=== PATIENT | male | born 1975 | race Asian ===

== ENCOUNTER 2023-07-01 22:59 | Emergency (ER) | payer OTHER, SELFPAY ==
[2023-07-01 23:05] VITALS: BP 142/94
[2023-07-01 23:21] LABS: % Basophils 0.8 % (0-2); % Eosinophils 1.6 % (0-6); % Immature Granulocytes 0.2 % (0-0.5); % Lymphocytes 45.4 % (20.5-51.1); % Monocytes 6.5 % (1.7-9.3); % Neutrophils 45.5 % (42.2-75.2); Absolute Basophils 0.1 10^3/uL (0-0.2); Absolute Eosinophils 0.2 10^3/uL (0-0.7); Absolute Lymphocytes 6.6 10^3/uL (1.2-3.4); Absolute Monocytes 0.9 10^3/uL (0.1-0.6); Absolute Neutrophils 6.6 10^3/uL (1.4-6.5); Hematocrit 38.2 % (39.0-52.0); Hemoglobin 12.9 g/dL (13.0-18.0); Mean Corp Hgb Conc. 33.8 g/dL (33.0-37.0); Mean Corpuscular Hgb 29.5 pg (27.0-31.0); Mean Corpuscular Volume 87.4 fL (80.0-94.0); Mean Platelet Volume 8.7 fL (7.4-10.4); Nucleated Red Blood Cells % 0 % (-); Platelet Count 409 10^3/uL (130-400); Red Blood Cell Count 4.37 10^6/uL (4.70-6.10); Red Cell Dist. Width 12.4 % (11.5-14.5); White Blood Cell Count 14.4 10^3/uL (4.8-10.8)
[2023-07-01 23:48] LABS: ALT (SGPT) 112 U/L (0-50); AST (SGOT) 59 U/L (17-59); Albumin 4.8 g/dl (3.5-5.0); Alkaline Phosphatase 103 U/L (38-126); Blood Urea Nitrogen 18 mg/dl (9-20); Calcium 10.1 mg/dl (8.4-10.2); Carbon Dioxide 25 mmol/L (22-30); Chloride 104 mmol/L (98-107); Glucose 91 mg/dl (70-99); Lipase 120 U/L (23-300); Potassium 4.6 mmol/L (3.5-5.1); Sodium 136 mmol/L (135-145); Total Bilirubin 0.4 mg/dl (0.2-1.3); Total Protein 8.3 g/dl (6.3-8.2); eGFR > 60.00
[2023-07-01 23:54] LABS: Troponin I < 0.012 ng/ml
[2023-07-02 02:06] VITALS: BMI 39.9
[2023-07-02 02:07] VITALS: BP 113/70
--- NOTE | 2023-07-02 02:15 | ED.GENMED ---
History of Present Illness
General
Chief Complaint: Chest Pain
Source: patient
Exam Limitations: none
Time Seen by Provider: 07/02/23 01:47
Travel History
Have you had any contact with someone who has COVID-19?: No
Do you have any symptoms of coronavirus? Fever > 100 degrees, chills, cough, shortness of breath, sore throat, loss of taste or smell, muscle aches, or headache?: No
History of Present Illness
History of Present Illness:
This is a 47 year old male that comes in with c/ right sided chest pain. States that a few days ago he started with this little right sided chest pain that he could pin point this pain with deep breathing. States that at first he thought he slept
wrong. States that Today he was just folding close and the pain started. States that it hurts with deep breathing. States that he has felt lightheaded. Denies any fever, chills, cough, SOB, abd pain, nausea ,vomiting, diarrhea, headache.
Past History
Past History
ED Past Medical History: GERD and Other (Gout, takes allopurinol 300 mg daily)
ED Past Surgical History: None
Social History
Tobacco: Non-smoker
Alcohol: None
Drug: None
Personal:
Living: with family
Employment: Employed
Family History
Family History: Early CAD
Review of Systems
Review of Systems
All Other Systems: ROS reviewed and negative except as documented in HPI and ROS
Constitutional: Reports no symptoms; Denies fever or chills
EENT: Reports no symptoms
Respiratory: Denies cough or trouble breathing
Cardiac: Reports chest pain (Right sided with deep breathing)
ABD/GI: Reports no symptoms; Denies abdominal pain, nausea, vomiting or diarrhea
: Reports no symptoms; Denies dysuria, frequency or urgency
Musculoskeletal: Reports no symptoms
Skin: Reports no symptoms
Neurological: Reports other (Lightheaded); Denies headache
Psychiatric: Reports no symptoms
Phy Exam
General Physical Exam
General Presentation: no apparent distress
General age: appears stated age
General Skin: warm and dry
General Habitus: normal
General Mental: alert
General Hydration: appears well hydrated
ENT Exam
ENT Exam: TM's normal, pharynx normal and neck supple
Eye Exam
Eye Exam: EOMI
Cardiovascular Exam
Cardiovascular Exam: regular rate/rhythm, no edema, no murmur, normal peripheral pulses and other (Pain is not reproducible with palpation)
Pulmonary Exam
Pulmonary Exam: lungs clear, no respiratory distress, no rales, chest non tender, no crackles, no rhonchi, no wheezing and no cough
Gastrointestinal Exam
Gastrointestinal Exam: normal bowel sounds, non tender, soft, no organomegaly, no pulsatile mass and non distended
Musculoskeletal Exam
Musculoskeletal Exam: full ROM and no edema
Skin Exam
Skin Exam: normal color, warm/dry and no rash
Psychiatric Exam
Psychiatric Exam: normal mood/affect
Scores
Heart Score for Chest Pain Patients
STEMI patient?: Not applicable
Course
Orders/Labs/Results
Orders:
Orders
07/01/23 23:00
Electrocardiogram (*1) Urgent
Reason for Study: Chest Pain
EKG- Treatment ONCE
07/01/23 23:13
CMP [Comprehensive Metabolic Panel] Urgent
Complete Blood Count/With Diff Urgent
Lipase Urgent
Troponin I Urgent
07/02/23 02:00
CT Chest Pe Study Urgent
Comment:
Reason For Exam: Right sided chest pain with deep breathing
07/02/23 02:01
0.9% Sodium Chloride 500 ml [Nss] 500 ml IV BOLUS
Abnormal Lab Results
07/01/23
23:13
WBC 14.4 H 10^3/uL
(4.8-10.8)
RBC 4.37 L 10^6/uL
(4.70-6.10)
Hgb 12.9 L g/dL
(13.0-18.0)
Hct 38.2 L %
(39.0-52.0)
Plt Count 409 H 10^3/uL
(130-400)
Absolute Neuts (auto) 6.6 H 10^3/uL
(1.4-6.5)
Absolute Lymphs (auto) 6.6 H 10^3/uL
(1.2-3.4)
Absolute Monos (auto) 0.9 H 10^3/uL
(0.1-0.6)
ALT 112 H U/L
(0-50)
Total Protein 8.3 H g/dl
(6.3-8.2)
07/01/23 23:13
07/01/23 23:13
Leukocytosis, H/H slightly low. Plt slightly elevated. ALt elevation. troponin <0.012, Lipase normal at 120
Vital Signs
Initial and Last Documented VS:
Initial Vital Signs
Temp Pulse Resp BP Pulse Ox
98.8 F 76 22 142/94 98
07/01/23 23:05 07/01/23 23:05 07/01/23 23:05 07/01/23 23:05 07/01/23 23:05
Last Documented Vital Signs
Temp Pulse Resp BP Pulse Ox
98.8 F 60 16 113/70 98
07/01/23 23:05 07/02/23 02:07 07/02/23 02:07 07/02/23 02:07 07/02/23 02:07
MDM/Problems Addressed
Differential Diagnosis Includes:
PE, Costochondritis
MDM/Problems Addressed:
This is a 47 year old male that comes in with c/o right sided chest pain that started a few days ago. States that he can pin point the pain when he takes a deep breath.
Will check labs and get CT chest.
Back into see patient. Explained that the CT of the chest is negative for any Pneumonia or PE. This may be Costochondritis. Will place patient on Naproxen and have him follow up with the Family doctor. Patient to return with any concerns.
Chronic conditions affecting care:
NA
Acute Exacerbation and/or Progression of Chronic Illness:
NA
*Radiology
Radiology exam reviewed: radiology read reviewed (CT chest- night hawk- Good bolus, mild motion. No evidence of pulmonary embolism. No evidence of aortic dissection or aneurysm. no focal airspace consolidation. NO pleural effusion or pneumothorax.
Fatty liver, )
*Pulse Oximetry
Patient hypoxic: no
*EKG
Interpreted by ED Provider?: Yes
Heart Rate: 69
Rate: normal
Rhythm: sinus
[place]: normal axis
Interval: normal interval
QRS Pattern: normal QRS
Ischemia: no ischemia
*Critical Care Note
Total Time (30-74mins, 75-104mins- exclusive of procedures): Not Applicable
ED Attending Note
-
Portions of this chart may have been created with voice recognition software.� Occasional wrong word or��sound alike� substitutions may have occurred due to the inherent limitations of voice recognition software.
Discharge Plan
Departure
Patient Disposition: Home (Routine Discharge)
Date of Disposition: 07/02/23
Time of Disposition: 03:24
Patient with high blood pressure during this ER visit?: No
Condition: Good
Covid-19: Not Applicable
Discharge Problem:
Acute costochondritis
Instructions: Costochondritis (DC)
Prescriptions:
New
naproxen 500 mg tablet
500 mg PO BID Qty: 10 0RF
No Action
cetirizine 10 MG tablet
10 mg PO DAILY
ibuprofen 600 MG tablet
600 mg PO Q6 PRN (Reason: pain) Qty: 20 0RF
methylprednisolone [Medrol (Pritesh)] 4 MG tablets,dose pack
4 tab PO . DIRECT Qty: 1 0RF
omeprazole magnesium [Prilosec OTC] 20 MG tablet,delayed release (DR/EC)
20 mg PO BID Qty: 20 0RF
Rx Instructions:
take while taking motrin and medrol
doxycycline hyclate 100 MG capsule
100 mg PO Q12 Qty: 14 0RF
Paxlovid 300 mg (150 mg x 2)-100 mg tablet
See Rx Instructions .ROUTE .COMPLEX Qty: 30 0RF
Rx Instructions:
orally per package directions
Referrals:
Justice Pena, DO [Family Provider] - Follow up in 2-3 days
Activity Restrictions/Additional Instructions:
As discussed, your blood work shows that your White blood cell count is slightly elevated. This may happen due to the stress caused by the pain. Your CT of the chest is normal. This is most likely a Costochondritis. You have had a prescription for
Naproxen sent to your Pharmacy. Please take as directed with food. Follow up with the family doctor. IF YOU HAVE INCREASED OR CHANGING PAIN, OR YOU HAVE ANY OTHER CONCERNS PLEASE RETURN TO THE EMERGENCY ROOM.
Interventions
Interventions:
*Risk Screen - Suicide Last Done: 07/01/23 23:05
*General Assessment Last Done: 07/02/23 02:06
*Neglect/Abuse Screening Last Done: 07/01/23 23:05
ED- Fall Risk Assessment Last Done: 07/02/23 02:24
*ED COVID-19 Vaccine History Last Done: 07/02/23 02:06
ED- Cardiac Assessment Last Done: 07/02/23 02:24
Discharge Date and Time
Print Language: MOHAWK
[2023-07-02] MEDS: NSS 500 IV (02:30)
[2023-07-02] MEDS: TORADOL 30 MG IV (03:26)
== END 2023-07-02 04:07 | disposition home or self-care (01) ==
LOC: EMR 22:59
PROVIDERS: EMERGENCY PHYSICIAN Emergency Medicine; FAMILY PHYSICIAN Family Medicine
DX: M94.0 Chondrocostal junction syndrome [Tietze] (principal); K21.9 Gastro-esophageal reflux disease without esophagitis; D72.829 Elevated white blood cell count, unspecified; Z82.49 Family history of ischemic heart disease and other diseases of the circulatory system
CPT/HCPCS: 99284; 96374; 96361; 71275; 80053; 83690; 84484; 85025; 93005; Q9967

== ENCOUNTER 2024-01-12 19:07 | Emergency (ER) | payer OTHER, SELFPAY ==
[2024-01-12 19:12] VITALS: BP 127/82
[2024-01-12 19:49] LABS: Hematocrit 41.9 % (39.0-52.0); Hemoglobin 14.3 g/dL (13.0-18.0); Mean Corp Hgb Conc. 34.1 g/dL (33.0-37.0); Mean Corpuscular Hgb 29.1 pg (27.0-31.0); Mean Corpuscular Volume 85.3 fL (80.0-94.0); Mean Platelet Volume 8.9 fL (7.4-10.4); Platelet Count 450 10^3/uL (130-400); Red Blood Cell Count 4.91 10^6/uL (4.70-6.10); Red Cell Dist. Width 12.3 % (11.5-14.5); White Blood Cell Count 12.6 10^3/uL (4.8-10.8)
[2024-01-12 19:56] LABS: ALT (SGPT) 38 U/L (0-50); AST (SGOT) 32 U/L (17-59); Albumin 4.9 g/dl (3.5-5.0); Alkaline Phosphatase 94 U/L (38-126); Blood Urea Nitrogen 23 mg/dl (9-20); Calcium 9.6 mg/dl (8.4-10.2); Carbon Dioxide 25 mmol/L (22-30); Chloride 103 mmol/L (98-107); Glucose 101 mg/dl (70-99); Potassium 4.7 mmol/L (3.5-5.1); Sodium 142 mmol/L (135-145); Total Bilirubin 0.3 mg/dl (0.2-1.3); Total Protein 8.4 g/dl (6.3-8.2); eGFR > 60.00
[2024-01-12 19:59] LABS: Segmented Neutrophils 47 % (42-75)
[2024-01-12 20:00] LABS: Atypical Lymphocytes 6 %; Band Neutrophils 1 % (0-3); Eosinophils 3 % (0-6); Lymphocytes 38 % (20-51); Monocytes 5 % (2-9); Normal RBC Morphology Yes; Platelets Checked Yes; Total Cells Counted 100
[2024-01-12 20:03] LABS: NT-proBNP < 20.0 pg/ml; Troponin I < 0.012 ng/ml
--- NOTE | 2024-01-12 22:40 | ED.GENMED ---
History of Present Illness
<ELSA London - Last Filed: 01/13/24 00:04>
General
Chief Complaint: Heart Rate Problem
Source: patient and spouse
Time Seen by Provider: 01/12/24 19:33
History of Present Illness
History of Present Illness:
A 48 yo male with a PMH of GERD presents to the ED for heart palpiation. He admits that 4 episode have occurred over the last week. He states he feel a sudden onset of anxiousness, light headedness, and slightly dizzy, and 'like I'm going to '.
He previously visited the [facility] in [place] on 01/08/2024 for the same complaint to which he they think he had a presumed SVT arrythmyia. He also admits to episode in 02/2022. A similar episode occurred today at noon and around 4
pm . He is to be evaluated for pSVT with his television news reporter on 01/16/2024 Dr. Brayden Herzog. He tells me that he's now scared of future attacks because of the way it makes him feel. His primary care doctor Laura Pratt told him to come into the ER
tonight in order for him to be prescribed a beta-acacia.
He has a family history of CAD on the entire male side of the family, but no history of arrhythmias.
Past History
<ELSA London - Last Filed: 01/13/24 00:04>
Past History
ED Past Medical History: GERD and Other (Gout, takes allopurinol 300 mg daily)
ED Past Surgical History: None
Social History
Tobacco: Non-smoker
Alcohol: None
Drug: None
Personal:
Living: with family
Employment: Employed
Family History
Family History: Early CAD
Phy Exam
<ELSA London - Last Filed: 01/13/24 00:04>
General Physical Exam
General Presentation: well appearing and no apparent distress
Eye Exam
Eye Exam: PERRL
Cardiovascular Exam
Cardiovascular Exam: regular rate/rhythm, no edema, no gallop, no murmur and normal peripheral pulses
Pulmonary Exam
Pulmonary Exam: lungs clear, no respiratory distress, no rales, no crackles, no rhonchi, no wheezing and no cough
Gastrointestinal Exam
Gastrointestinal Exam: normal bowel sounds, non tender, soft and non distended
Neurological Exam
Neurological Exam: alert and oriented x3
Musculoskeletal Exam
Musculoskeletal Exam: full ROM
Skin Exam
Skin Exam: normal color, warm/dry and no rash
Psychiatric Exam
Psychiatric Exam: normal mood/affect
Course
<Jakub Pereyra, [facility] - Last Filed: 01/13/24 00:04>
Orders/Labs/Results
Orders:
Orders
01/12/24 19:11
Electrocardiogram (*1) Urgent
Reason for Study: Other
Other Reason for Exam: Respiratory Distress
Cardiac Monitoring- Treatment ONCE
EKG- Treatment ONCE
IV Insert/Care/Rem.- Treatment PRN
CR Chest - 2 Views Urgent
Comment:
Reason For Exam: respiratory distress
O2 Therapy [RESP] Urgent
Titrate/Wean O2 to maintain O2 sat greater than (%): 93
Special Instructions: TO MAINTAIN CONTINUOUS O2 SATS >/= 93%
Pulse Ox/cont/shift [RESP] Urgent
Quantity: 1
Special Instructions: continuous pulse ox
01/12/24 19:25
Complete Blood Count/With Diff Urgent
Manual Differential Urgent
01/12/24 19:26
Comprehensive Metabolic Panel Urgent
NT-proBNP Urgent
Troponin I Urgent
Abnormal Lab Results
01/12/24 01/12/24
19:25 19:26
WBC 12.6 H 10^3/uL
(4.8-10.8)
Plt Count 450 H 10^3/uL
(130-400)
BUN 23 H mg/dl
(9-20)
Glucose 101 H mg/dl
(70-99)
Total Protein 8.4 H g/dl
(6.3-8.2)
01/12/24 19:25
01/12/24 19:26
Vital Signs
Initial and Last Documented VS:
Initial Vital Signs
Temp Pulse Resp BP Pulse Ox
98.4 F 84 20 127/82 97
01/12/24 19:12 01/12/24 19:12 01/12/24 19:12 01/12/24 19:12 01/12/24 19:12
Last Documented Vital Signs
Temp Pulse Resp BP Pulse Ox
98.4 F 71 24 136/86 98
01/12/24 19:12 01/12/24 23:00 01/12/24 23:00 01/12/24 23:00 01/12/24 23:02
<Parrish Benson, DO - Last Filed: 01/13/24 00:02>
Orders/Labs/Results
Orders:
Orders
01/12/24 19:11
Electrocardiogram (*1) Urgent
Reason for Study: Other
Other Reason for Exam: Respiratory Distress
Cardiac Monitoring- Treatment ONCE
EKG- Treatment ONCE
IV Insert/Care/Rem.- Treatment PRN
CR Chest - 2 Views Urgent
Comment:
Reason For Exam: respiratory distress
O2 Therapy [RESP] Urgent
Titrate/Wean O2 to maintain O2 sat greater than (%): 93
Special Instructions: TO MAINTAIN CONTINUOUS O2 SATS >/= 93%
Pulse Ox/cont/shift [RESP] Urgent
Quantity: 1
Special Instructions: continuous pulse ox
01/12/24 19:25
Complete Blood Count/With Diff Urgent
Manual Differential Urgent
01/12/24 19:26
Comprehensive Metabolic Panel Urgent
NT-proBNP Urgent
Troponin I Urgent
Abnormal Lab Results
01/12/24 01/12/24
19:25 19:26
WBC 12.6 H 10^3/uL
(4.8-10.8)
Plt Count 450 H 10^3/uL
(130-400)
BUN 23 H mg/dl
(9-20)
Glucose 101 H mg/dl
(70-99)
Total Protein 8.4 H g/dl
(6.3-8.2)
01/12/24 19:25
01/12/24 19:26
Vital Signs
Initial and Last Documented VS:
Initial Vital Signs
Temp Pulse Resp BP Pulse Ox
98.4 F 84 20 127/82 97
01/12/24 19:12 01/12/24 19:12 01/12/24 19:12 01/12/24 19:12 01/12/24 19:12
Last Documented Vital Signs
Temp Pulse Resp BP Pulse Ox
98.4 F 71 24 136/86 98
01/12/24 19:12 01/12/24 23:00 01/12/24 23:00 01/12/24 23:00 01/12/24 23:02
<ELSA London - Last Filed: 01/13/24 00:04>
*Critical Care Note
Total Time (30-74mins, 75-104mins- exclusive of procedures): Not Applicable
ED Attending Note
<ELSA London - Last Filed: 01/13/24 00:04>
-
Portions of this chart may have been created with voice recognition software.� Occasional wrong word or��sound alike� substitutions may have occurred due to the inherent limitations of voice recognition software.
<Parrish Benson, DO - Last Filed: 01/13/24 00:02>
ED Attending Note
Patient seen and examined by attending physician: Yes
I performed the substantive portion of visit, reviewed & personally made and approve the management plan that is documented in note by myself or RAFA.: Yes
ED Attending Note:
Pleasant 48-year-old male presents to the emergency department after intermittent palpitations. Patient was diagnosed with 'presumed intermittent SVT '. Patient follows with Dr. Marques Herzog, cardiology and has an appointment this Sunday. Patient
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 Patient was in contact with his primary care provider who advised him to come to the ER to be started on a beta-acacia. Patient was seen in conjunction with the PA student. I have reviewed and agree with
the history and treatment plan presented. On my independent physical exam, patient is awake, alert, and oriented x3, minimal acute distress at this time. Heart is regular rate and rhythm. Lungs are clear to auscultation bilaterally without
wheezes rales or rhonchi present. Abdomen is obese and soft. Skin is warm and dry. Patient moves all 4 extremities. Patient mentate appropriately.
Patient had a D-dimer on Sunday which was negative.
Spoke with Dr. Laura Rucker. PCP to discuss case. She requested that we start a Holter monitor. Patient due to follow-up with cardiology this week.
Patient to be put in the chest pain follow-up hotline to follow-up with cardiology, request Holter monitor. Will start a beta-acacia.
Discharge Plan
Departure
Patient Disposition: Home (Routine Discharge)
Date of Disposition: 01/13/24
Time of Disposition: 00:00
Patient with high blood pressure during this ER visit?: Yes
Condition: Good
Discharge Problem:
Palpitations
Instructions: Palpitations (DC), BLOOD PRESSURE
Prescriptions:
New
metoprolol succinate [Toprol XL] 25 mg tablet extended release 24 hr
25 mg PO DAILY Qty: 14 0RF
No Action
cetirizine 10 MG tablet
10 mg PO DAILY
ibuprofen 600 MG tablet
600 mg PO Q6 PRN (Reason: pain) Qty: 20 0RF
methylprednisolone [Medrol (Pritesh)] 4 MG tablets,dose pack
4 tab PO . DIRECT Qty: 1 0RF
omeprazole magnesium [Prilosec OTC] 20 MG tablet,delayed release (DR/EC)
20 mg PO BID Qty: 20 0RF
Rx Instructions:
take while taking motrin and medrol
doxycycline hyclate 100 MG capsule
100 mg PO Q12 Qty: 14 0RF
Paxlovid 300 mg (150 mg x 2)-100 mg tablet
See Rx Instructions .ROUTE .COMPLEX Qty: 30 0RF
Rx Instructions:
orally per package directions
naproxen 500 mg tablet
500 mg PO BID Qty: 10 0RF
Referrals:
[facility] [Provider Group] - Next open appointment
Laura Rucker MD [Family Provider] -
Activity Restrictions/Additional Instructions:
As discussed cardiology will be giving you a call this week. Please discuss Holter monitor with them at your appointment scheduled for this Sunday.
It was a pleasure meeting you and taking part in your care. We hope for your continued healing and wellness.
Please read discharge instructions in their entirety. However, they are for general education and may not describe your exact diagnosis at discharge. Information on your ER visit and medical conditions were discussed with you along with appropriate
follow up information...
If indicated, please take your medications as instructed and indicated on discharge paperwork.
Please schedule a follow up appointment as directed. Call to schedule an appointment
Please return to the emergency department with ANY change in, persisting, or worsening of symptoms. If any of your symptoms do not improve, or persist, or become more severe within 6-12 hours, please return to the emergency department for further
care.
Please return to the emergency department if you develop a headache, neck pain/stiffness, fever greater than 100.4F, chest pain, shortness of breath, persistent nausea, vomiting, slurred speech, difficulty walking, numbness/tingling, weakness, signs
of infection or any other symptoms that are worrisome to you.
If you have any questions or concerns please do not hesitate to call the Hospital at or E-mail me directly at [email or web address]
Interventions
Interventions:
*Risk Screen - Suicide Last Done: 01/12/24 19:12
*General Assessment Last Done: 01/12/24 19:12
*Neglect/Abuse Screening Last Done: 01/12/24 19:12
ED- Fall Risk Assessment Last Done: 01/12/24 19:12
*ED COVID-19 Vaccine History Last Done: 01/12/24 19:12
ED- Cardiac Assessment Last Done: 01/12/24 23:02
ED- Pulmonary Assessment Last Done: 01/12/24 23:02
Discharge Date and Time
Print Language: UPPER SORBIAN
[2024-01-12 23:00] VITALS: BP 136/86; BMI 39.9
[2024-01-13] VITALS: BP 127/85
== END 2024-01-13 00:29 | disposition home or self-care (01) ==
LOC: EMR 19:07
PROVIDERS: EMERGENCY PHYSICIAN Student in an Organized Health Care Education/Training Program; FAMILY PHYSICIAN Family Medicine
DX: R00.2 Palpitations (principal); R42 Dizziness and giddiness; K21.9 Gastro-esophageal reflux disease without esophagitis; M10.9 Gout, unspecified; Z79.899 Other long term (current) drug therapy; Z88.1 Allergy status to other antibiotic agents
CPT/HCPCS: 99285; 94760; 71046; 80053; 83880; 84484; 85025; 93005

== ENCOUNTER 2024-01-17 14:49 | Emergency (ER) | payer OTHER, SELFPAY ==
[2024-01-17 14:55] VITALS: BP 130/79
[2024-01-17 15:10] LABS: % Basophils 0.7 % (0-2); % Immature Granulocytes 0.2 % (0-0.5); % Lymphocytes 43.9 % (20.5-51.1); % Monocytes 5.8 % (1.7-9.3); % Neutrophils 48.4 % (42.2-75.2); Absolute Basophils 0.1 10^3/uL (0-0.2); Absolute Eosinophils 0.1 10^3/uL (0-0.7); Absolute Lymphocytes 4.8 10^3/uL (1.2-3.4); Absolute Monocytes 0.6 10^3/uL (0.1-0.6); Absolute Neutrophils 5.3 10^3/uL (1.4-6.5); Hematocrit 38.1 % (39.0-52.0); Hemoglobin 13.3 g/dL (13.0-18.0); Mean Corp Hgb Conc. 34.9 g/dL (33.0-37.0); Mean Corpuscular Hgb 30.3 pg (27.0-31.0); Mean Corpuscular Volume 86.8 fL (80.0-94.0); Mean Platelet Volume 9.1 fL (7.4-10.4); Nucleated Red Blood Cells % 0 % (-); Platelet Count 393 10^3/uL (130-400); Red Blood Cell Count 4.39 10^6/uL (4.70-6.10)
[2024-01-17 15:25] LABS: ALT (SGPT) 32 U/L (0-50); AST (SGOT) 26 U/L (17-59); Albumin 4.7 g/dl (3.5-5.0); Alkaline Phosphatase 88 U/L (38-126); Blood Urea Nitrogen 16 mg/dl (9-20); Calcium 10.3 mg/dl (8.4-10.2); Carbon Dioxide 25 mmol/L (22-30); Chloride 99 mmol/L (98-107); Glucose 145 mg/dl (70-99); Potassium 4.4 mmol/L (3.5-5.1); Sodium 138 mmol/L (135-145); Total Bilirubin 0.3 mg/dl (0.2-1.3); Total Protein 7.9 g/dl (6.3-8.2); eGFR > 60.00
[2024-01-17 15:34] LABS: Troponin I < 0.012 ng/ml
--- NOTE | 2024-01-17 17:15 | ED.GENMED ---
History of Present Illness
General
Chief Complaint: Chest Pain
Source: patient
Time Seen by Provider: 01/17/24 16:39
History of Present Illness
History of Present Illness:
48-year-old male presents to the emergency room complaining of palpitations and some chest pain. Patient has been experiencing rapid heart rate and palpitations frequently over the past few weeks. He was seen by cardiology yesterday. He began
taking metoprolol 25 mg. 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 He also had a visit to the emergency room in [place] where he was found
to have SVT. Chest pain today began several hours ago and is located in the right upper chest. No associated diaphoresis or shortness of breath. Symptoms seem to start after eating lunch.
Past History
Past History
ED Past Medical History: GERD and Other (Gout, takes allopurinol 300 mg daily)
ED Past Surgical History: None
Social History
Tobacco: Non-smoker
Alcohol: None
Drug: None
Personal:
Living: with family
Employment: Employed
Family History
Family History: Early CAD
Phy Exam
Physical Exam
Physical Exam:
General: Awake, Alert, Oriented X3. No acute distress.
Vitals: unremarkable
Head: Atraumatic
Eyes: Pupils equal, EOMI
Throat: Airway intact, no exudates
Neck: Trachea midline
Lungs: Clear and equal b/l
Heart: Regular rate, no murmurs
Abd: Soft, Nontender, No pulsatile mass
Neuro: Cranial nerves intact, muscle strength equal bilaterally, cerebellar exam normal
Skin: Warm, dry, no rash
Extremities: pulses equal b/l, no edema
Scores
Heart Score for Chest Pain Patients
STEMI patient?: No
History: Slightly or Non-Suspicious
ECG: Normal
Age: >45 - <65 years
Risk Factors: 1 or 2 Risk Factors
Troponin: </= Normal Limit
Heart Score for Chest Pain Patients: 2
Heart Score Risk: 2.5% MACE over next 6 weeks
Course
Orders/Labs/Results
Orders:
Orders
01/17/24 14:50
Electrocardiogram (*1) Urgent
Reason for Study: Chest Pain
EKG- Treatment ONCE
01/17/24 15:01
CMP [Comprehensive Metabolic Panel] Urgent
Complete Blood Count/With Diff Urgent
Troponin I Urgent
Abnormal Lab Results
01/17/24
15:01
WBC 11.0 H 10^3/uL
(4.8-10.8)
RBC 4.39 L 10^6/uL
(4.70-6.10)
Hct 38.1 L %
(39.0-52.0)
Absolute Lymphs (auto) 4.8 H 10^3/uL
(1.2-3.4)
Glucose 145 H mg/dl
(70-99)
Calcium 10.3 H mg/dl
(8.4-10.2)
01/17/24 15:01
01/17/24 15:01
Vital Signs
Initial and Last Documented VS:
Initial Vital Signs
Temp Pulse Resp BP Pulse Ox
98.2 F 74 16 130/79 98
01/17/24 14:55 01/17/24 14:55 01/17/24 14:55 01/17/24 14:55 01/17/24 14:55
Last Documented Vital Signs
Temp Pulse Resp BP Pulse Ox
98.2 F 72 18 128/72 99
01/17/24 14:55 01/17/24 17:33 01/17/24 17:33 01/17/24 17:33 01/17/24 17:33
MDM/Problems Addressed
Differential Diagnosis Includes:
PVCs, PACs, SVT, anxiety
MDM/Problems Addressed:
Patient has a normal EKG. No significant dysrhythmias noted on observation on the monitor here. Labs unremarkable. Patient is under significant stress. I suspect this is greatly contributing to his symptomatology. He stable for discharge from
the emergency room and outpatient follow-up with cardiology.
*Pulse Oximetry
Patient hypoxic: no
*EKG
Interpreted by ED Provider?: Yes
Heart Rate: 73
Rate: normal
Rhythm: sinus
[place]: normal axis
Interval: normal interval
QRS Pattern: normal QRS
Ischemia: no ischemia
*Manager Diversity Interpretation
Rate: normal
Interpretation: normal
Rhythm: sinus
*Critical Care Note
Total Time (30-74mins, 75-104mins- exclusive of procedures): Not Applicable
ED Attending Note
-
Portions of this chart may have been created with voice recognition software.� Occasional wrong word or��sound alike� substitutions may have occurred due to the inherent limitations of voice recognition software.
Discharge Plan
Departure
Patient Disposition: Home (Routine Discharge)
Date of Disposition: 01/17/24
Time of Disposition: 17:16
Patient with high blood pressure during this ER visit?: No
Condition: Good
Discharge Problem:
Chest pain, Palpitations
Instructions: Palpitations, Chest Pain [facility] Follow Up
Prescriptions:
No Action
cetirizine 10 MG tablet
10 mg PO DAILY
ibuprofen 600 MG tablet
600 mg PO Q6 PRN (Reason: pain) Qty: 20 0RF
methylprednisolone [Medrol (Pritesh)] 4 MG tablets,dose pack
4 tab PO . DIRECT Qty: 1 0RF
omeprazole magnesium [Prilosec OTC] 20 MG tablet,delayed release (DR/EC)
20 mg PO BID Qty: 20 0RF
Rx Instructions:
take while taking motrin and medrol
doxycycline hyclate 100 MG capsule
100 mg PO Q12 Qty: 14 0RF
Paxlovid 300 mg (150 mg x 2)-100 mg tablet
See Rx Instructions .ROUTE .COMPLEX Qty: 30 0RF
Rx Instructions:
orally per package directions
naproxen 500 mg tablet
500 mg PO BID Qty: 10 0RF
metoprolol succinate [Toprol XL] 25 mg tablet extended release 24 hr
25 mg PO DAILY Qty: 14 0RF
Interventions
Interventions:
*Risk Screen - Suicide Last Done: 01/17/24 14:55
*General Assessment Last Done: 01/17/24 17:31
*Neglect/Abuse Screening Last Done: 01/17/24 14:55
ED- Fall Risk Assessment Last Done: 01/17/24 17:31
*ED COVID-19 Vaccine History Last Done: 01/17/24 17:31
*Nursing Disposition Last Done: 01/17/24 17:31
ED- Cardiac Assessment Last Done: 01/17/24 17:00
Discharge Date and Time
Print Language: MACEDONIAN
[2024-01-17 17:33] VITALS: BP 128/72
== END 2024-01-17 17:31 | disposition home or self-care (01) ==
LOC: EMR 14:49
PROVIDERS: Emergency Medicine; EMERGENCY PHYSICIAN Emergency Medicine; FAMILY PHYSICIAN Family Medicine
DX: R07.89 Other chest pain (principal); R00.2 Palpitations; K21.9 Gastro-esophageal reflux disease without esophagitis; I47.10 Supraventricular tachycardia, unspecified; Z82.49 Family history of ischemic heart disease and other diseases of the circulatory system
CPT/HCPCS: 99283; 80053; 84484; 85025; 93005

== ENCOUNTER 2024-02-26 09:34 | Emergency (ER) | payer OTHER, SELFPAY ==
[2024-02-26 09:39] VITALS: BP 130/81
--- NOTE | 2024-02-26 09:58 | ED.GENMED ---
History of Present Illness
<Mariia Kumar MD, Resident - Last Filed: 02/26/24 12:50>
General
Chief Complaint: Chest Problem
Time Seen by Provider: 02/26/24 09:46
History of Present Illness
History of Present Illness:
This is a 48 year old male patient with PMH of tachycardia, GERD and gout who presents to the ER with concerns of chest pressure and palpitations. He states that he started to feel heavy chest pressure that was nonradiating and continuos since
Sunday that is associated with palpitations and SOB with exertion. He denies any headaches, syncope or dizziness. He was previously seen for similar complaints in December where afterward he had followed up with home planning consultant salesperson who had started him on
Metoprolol which effectively controls his palpitations. He is adherent to medication regiment. He had just visited his PCP who had done an EKG with normal findings but was sent to the ER for further work up due to continued chest pressure.
Past History
<Mariia Kumar MD, Resident - Last Filed: 02/26/24 12:50>
Past History
ED Past Medical History: GERD and Other (Gout, takes allopurinol 300 mg daily)
ED Past Surgical History: None
Social History
Tobacco: Non-smoker
Alcohol: None
Drug: None
Personal:
Living: with family
Employment: Employed
Family History
Family History: Early CAD
Review of Systems
<Mariia Kumar MD, Resident - Last Filed: 02/26/24 12:50>
Review of Systems
Constitutional: Denies fever or chills
Cardiac: Reports palpitations and other (chest pressure)
ABD/GI: Denies abdominal pain
Neurological: Denies dizzy or headache
Phy Exam
<Mariia Kumar MD, Resident - Last Filed: 02/26/24 12:50>
General Physical Exam
General Presentation: well appearing and no apparent distress
Cardiovascular Exam
Cardiovascular Exam: regular rate/rhythm and no murmur
Heart Sounds: normal
Pulmonary Exam
Pulmonary Exam: lungs clear and no crackles
Gastrointestinal Exam
Gastrointestinal Exam: non tender, soft and non distended
Neurological Exam
Neurological Exam: oriented x3
Musculoskeletal Exam
Musculoskeletal Exam: no edema
Skin Exam
Skin Exam: warm/dry
Psychiatric Exam
Psychiatric Exam: normal mood/affect
Scores
<Mariia Kumar MD, Resident - Last Filed: 02/26/24 12:50>
Heart Score for Chest Pain Patients
Heart Score for Chest Pain Patients: 2
Heart Score Risk: 2.5% MACE over next 6 weeks
<Liliana Montalvo, DO - Last Filed: 02/26/24 10:44>
Heart Score for Chest Pain Patients
STEMI patient?: No
History: Slightly or Non-Suspicious
ECG: Normal
Age: >45 - <65 years
Risk Factors: 1 or 2 Risk Factors
Troponin: </= Normal Limit
Heart Score for Chest Pain Patients: 2
Heart Score Risk: 2.5% MACE over next 6 weeks
Course
<Mariia Kumar MD, Resident - Last Filed: 02/26/24 12:50>
Orders/Labs/Results
Orders:
Orders
02/26/24 09:35
Electrocardiogram (*1) Urgent
Reason for Study: Chest Pain
EKG- Treatment ONCE
02/26/24 10:11
Complete Blood Count/With Diff Urgent
Comprehensive Metabolic Panel Urgent
NT-proBNP Urgent
Comment: ADD ON
Troponin I Urgent
02/26/24 10:20
Add On- LAB Urgent
Tests Added?: pro bnp
Abnormal Lab Results
02/26/24
10:11
RBC 4.40 L 10^6/uL
(4.70-6.10)
Hgb 12.8 L g/dL
(13.0-18.0)
MCHC 32.0 L g/dL
(33.0-37.0)
Absolute Lymphs (auto) 4.5 H 10^3/uL
(1.2-3.4)
Absolute Monos (auto) 0.8 H 10^3/uL
(0.1-0.6)
Glucose 115 H mg/dl
(70-99)
02/26/24 10:11
02/26/24 10:11
Vital Signs
Initial and Last Documented VS:
Initial Vital Signs
Temp Pulse Resp BP Pulse Ox
98.3 F 63 16 130/81 100
02/26/24 09:39 02/26/24 09:39 02/26/24 09:39 02/26/24 09:39 02/26/24 09:39
Last Documented Vital Signs
Temp Pulse Resp BP Pulse Ox
98.3 F 60 20 134/87 100
02/26/24 09:39 02/26/24 11:15 02/26/24 11:15 02/26/24 11:19 02/26/24 11:15
<Liliana Montalvo, DO - Last Filed: 02/26/24 10:44>
Orders/Labs/Results
Orders:
Orders
02/26/24 09:35
Electrocardiogram (*1) Urgent
Reason for Study: Chest Pain
EKG- Treatment ONCE
02/26/24 10:11
Complete Blood Count/With Diff Urgent
Comprehensive Metabolic Panel Urgent
NT-proBNP Urgent
Comment: ADD ON
Troponin I Urgent
02/26/24 10:20
Add On- LAB Urgent
Tests Added?: pro bnp
Abnormal Lab Results
02/26/24
10:11
RBC 4.40 L 10^6/uL
(4.70-6.10)
Hgb 12.8 L g/dL
(13.0-18.0)
MCHC 32.0 L g/dL
(33.0-37.0)
Absolute Lymphs (auto) 4.5 H 10^3/uL
(1.2-3.4)
Absolute Monos (auto) 0.8 H 10^3/uL
(0.1-0.6)
Glucose 115 H mg/dl
(70-99)
02/26/24 10:11
02/26/24 10:11
Vital Signs
Initial and Last Documented VS:
Initial Vital Signs
Temp Pulse Resp BP Pulse Ox
98.3 F 63 16 130/81 100
02/26/24 09:39 02/26/24 09:39 02/26/24 09:39 02/26/24 09:39 02/26/24 09:39
Last Documented Vital Signs
Temp Pulse Resp BP Pulse Ox
98.3 F 60 20 134/87 100
02/26/24 09:39 02/26/24 11:15 02/26/24 11:15 02/26/24 11:19 02/26/24 11:15
<Mariia Mami Kumar MD, Resident - Last Filed: 02/26/24 12:50>
MDM/Problems Addressed
Differential Diagnosis Includes:
CHF, SVT, [place], anxiety
MDM/Problems Addressed:
Patient not tachy/not in distress at time of exam. CBC/CMP/probnp/trop ordered for evaluation of cardiac injury or CHF. EKG with normal sinus rhythm. Pulmonary and cardiac exam findings unremarkable. Blood work without any findings of acute
abnormality. Advised for further follow up with PCP for outpatient care such as stress test. Pt stable for discharge.
<Mariia Kumar MD, Resident - Last Filed: 02/26/24 12:50>
*Critical Care Note
Total Time (30-74mins, 75-104mins- exclusive of procedures): Not Applicable
ED Attending Note
<Mariia Kumar MD, Resident - Last Filed: 02/26/24 12:50>
-
Portions of this chart may have been created with voice recognition software.� Occasional wrong word or��sound alike� substitutions may have occurred due to the inherent limitations of voice recognition software.
<Liliana Montalvo DO - Last Filed: 02/26/24 10:44>
ED Attending Note
Patient seen and examined by attending physician: Yes
I performed the substantive portion of visit, reviewed & personally made and approve the management plan that is documented in note by myself or RAFA.: Yes
I performed a history and physical exam of patient and discussed management with resident, I reviewed resident's note and agree with documented findings and plan of care.: Yes
ED Attending Note:
48-year-old male with history of palpitations on metoprolol presenting to the emergency department for 3 to 4 days of midsternal chest pressure, palpitations, and shortness of breath, worse with exertion. Patient reports that he had the symptoms
before, has seen cardiology, started on metoprolol. He also had a Holter monitor. Denies any history of blood clots, recent surgery, recent travel. Reports that he has been evaluated for thyroid issues, negative. He went to his primary care
doctor today, recommended he come to the ER for further evaluation. Patient denies any known cardiac history or family history of cardiac disease. Vital signs are normal
On exam patient is very well-appearing, resting comfortably, no acute distress. Unremarkable cardiac and pulmonary exam. EKG obtained, nonischemic and unchanged from prior. Lower suspicion for ACS given duration of symptoms and nonischemic EKG.
Lower suspicion for PE, PERC negative, heart rate currently controlled. On review of EMR, patient had been evaluated in June for some similar symptoms, CT chest negative for PE at that time. Patient afebrile no infectious symptoms with lower
suspicion for underlying infection. Will screen with laboratory analysis with likely plan for outpatient cardiac follow-up for potential stress testing.
Discharge Plan
Departure
Patient Disposition: Home (Routine Discharge)
Date of Disposition: 02/26/24
Time of Disposition: 11:07
Patient with high blood pressure during this ER visit?: Yes
Discharge Problem:
Heart palpitations, Chest pressure
Prescriptions:
No Action
cetirizine 10 MG tablet
10 mg PO DAILY
ibuprofen 600 MG tablet
600 mg PO Q6 PRN (Reason: pain) Qty: 20 0RF
methylprednisolone [Medrol (Pritesh)] 4 MG tablets,dose pack
4 tab PO . DIRECT Qty: 1 0RF
omeprazole magnesium [Prilosec OTC] 20 MG tablet,delayed release (DR/EC)
20 mg PO BID Qty: 20 0RF
Rx Instructions:
take while taking motrin and medrol
doxycycline hyclate 100 MG capsule
100 mg PO Q12 Qty: 14 0RF
Paxlovid 300 mg (150 mg x 2)-100 mg tablet
See Rx Instructions .ROUTE .COMPLEX Qty: 30 0RF
Rx Instructions:
orally per package directions
naproxen 500 mg tablet
500 mg PO BID Qty: 10 0RF
metoprolol succinate [Toprol XL] 25 mg tablet extended release 24 hr
25 mg PO DAILY Qty: 14 0RF
Referrals:
Laura Rucker MD [Family Provider] -
Activity Restrictions/Additional Instructions:
If experiencing worsening chest pain or palpitations, syncope or vision changes please return to the ER. Follow-up with your PCP for further workup left chest pressure such as exercise stress test.
Interventions
Interventions:
*Risk Screen - Suicide Last Done: 02/26/24 09:55
*General Assessment Last Done: 02/26/24 10:03
*Neglect/Abuse Screening Last Done: 02/26/24 09:55
ED- Fall Risk Assessment Last Done: 02/26/24 11:22
*ED COVID-19 Vaccine History Last Done: 02/26/24 09:55
*Nursing Disposition Last Done: 02/26/24 11:22
ED- Cardiac Assessment Last Done: 02/26/24 09:55
ED- Pulmonary Assessment Last Done: 02/26/24 09:55
Discharge Date and Time
Discharge Date/Time: 02/26/24 11:30
Print Language: KAZAKH
[2024-02-26 10:23] LABS: % Basophils 0.8 % (0-2); % Eosinophils 1.5 % (0-6); % Immature Granulocytes 0.2 % (0-0.5); % Lymphocytes 46.7 % (20.5-51.1); % Neutrophils 42.8 % (42.2-75.2); Absolute Basophils 0.1 10^3/uL (0-0.2); Absolute Eosinophils 0.2 10^3/uL (0-0.7); Absolute Lymphocytes 4.5 10^3/uL (1.2-3.4); Absolute Monocytes 0.8 10^3/uL (0.1-0.6); Absolute Neutrophils 4.1 10^3/uL (1.4-6.5); Hemoglobin 12.8 g/dL (13.0-18.0); Mean Corpuscular Hgb 29.1 pg (27.0-31.0); Mean Corpuscular Volume 90.9 fL (80.0-94.0); Mean Platelet Volume 9.2 fL (7.4-10.4); Nucleated Red Blood Cells % 0 % (-); Platelet Count 341 10^3/uL (130-400); Red Cell Dist. Width 12.6 % (11.5-14.5); White Blood Cell Count 9.7 10^3/uL (4.8-10.8)
[2024-02-26 10:42] LABS: ALT (SGPT) 30 U/L (0-50); AST (SGOT) 24 U/L (17-59); Albumin 4.5 g/dl (3.5-5.0); Alkaline Phosphatase 94 U/L (38-126); Blood Urea Nitrogen 19 mg/dl (9-20); Calcium 9.2 mg/dl (8.4-10.2); Carbon Dioxide 24 mmol/L (22-30); Chloride 105 mmol/L (98-107); Glucose 115 mg/dl (70-99); Potassium 4.7 mmol/L (3.5-5.1); Sodium 141 mmol/L (135-145); Total Bilirubin 0.5 mg/dl (0.2-1.3); Total Protein 7.6 g/dl (6.3-8.2); eGFR > 60.00
[2024-02-26 10:53] LABS: NT-proBNP < 20.0 pg/ml; Troponin I < 0.012 ng/ml
[2024-02-26 11:19] VITALS: BP 134/87
== END 2024-02-26 11:30 | disposition home or self-care (01) ==
LOC: EMR 09:34
PROVIDERS: Student in an Organized Health Care Education/Training Program; EMERGENCY PHYSICIAN Student in an Organized Health Care Education/Training Program; FAMILY PHYSICIAN Family Medicine
DX: R07.89 Other chest pain (principal); R00.2 Palpitations; K21.9 Gastro-esophageal reflux disease without esophagitis
CPT/HCPCS: 99284; 80053; 83880; 84484; 85025; 93005

== ENCOUNTER → 2024-03-03 13:43 | Outpatient (REF) | payer OTHER, SELFPAY | LOC: RCS 13:43 | PROVIDERS: ATTENDING PHYSICIAN Internal Medicine Cardiovascular Disease; FAMILY PHYSICIAN Family Medicine | DX: R07.9 Chest pain, unspecified (principal) | CPT/HCPCS: 93017 ==

== ENCOUNTER 2024-05-05 09:39 | Emergency (ER) | payer OTHER, SELFPAY ==
[2024-05-05 09:42] VITALS: BP 133/79
--- NOTE | 2024-05-05 10:28 | ED.MUSCINJ ---
Addendum entered and electronically signed by Troy Uribe PA-C 05/17/24 11:05:
Addendum made as there was a mistake in the documentation. The fracture was noted to the RIGHT second toe, not the left. Please disregard all LEFT sided documentation as this is in error. Thank you.
Original Note:
HPI-Injury
General
Chief Complaint: Musculo-Skeletal Complaint
Time Seen by Provider: 05/05/24 09:54
History of Present Illness-Injury
Initial Injury comments:
48-year-old male here today after he injured his right second toe 4 days ago while in [place]. He struck his toe against the wall in the pool. He has since had pain and swelling. He has been able to ambulate.
Past History
Past History
ED Past Medical History: GERD and Other (Gout, takes allopurinol 300 mg daily)
ED Past Surgical History: None
Social History
Tobacco: Non-smoker
Alcohol: None
Drug: None
Personal:
Living: with family
Employment: Employed
Family History
Family History: Early CAD
Review of Systems
Review of Systems
All Other Systems: ROS reviewed and negative except as documented in HPI and ROS
Phy Exam
Physical Exam
Physical Exam:
GENERAL: Alert , in no apparent distress
NEUROLOGICAL: Alert and oriented, no focal neuro deficits
SKIN: Warm and dry, skin intact.
MUSCULOSKELETAL: No edema, well perfused. Tenderness along the distal tip of the left second toe. There is mild ecchymosis noted inferior to the nailbed. No deformities. Patient neurovascularly intact
PSYCH: Normal and appropriate interaction.
Injury Course
Orders/Labs/Results
Orders:
Orders
05/05/24 10:30
CR Toe(s) Min 2 Vw Right Urgent
Reason For Exam: left fourth toe pain
Indicate Which Toe:: Fourth
05/05/24 13:09
Lian Tape Right-Treatment ONCE
Cast Shoe Right-Treatment ONCE
MDM/Problems Addressed
Differential Diagnosis Includes:
48-year-old male here today after he injured his right second toe. Overall, patient appears well. On examination the patient has tenderness along the distal tip of the left second toe. There is mild ecchymosis noted inferior to the nailbed. No
deformities. Patient neurovascularly intact. Given symptoms/findings, will begin with x-rays.
Update: X-ray reveals evidence of an avulsion fracture. Patient made aware. Will place in a hard soled shoe and lian tape the toes. Recommend supportive measures and orthopedic follow-up. All questions answered. Stable for discharge.
*Critical Care Note
Total Time (30-74mins, 75-104mins- exclusive of procedures): Not Applicable
ED Attending Note
-
Portions of this chart may have been created with voice recognition software.� Occasional wrong word or��sound alike� substitutions may have occurred due to the inherent limitations of voice recognition software.
Discharge Plan
Departure
Patient Disposition: Home (Routine Discharge)
Date of Disposition: 05/05/24
Time of Disposition: 13:13
Patient with high blood pressure during this ER visit?: No
Condition: Good
Covid-19: Not Applicable
Discharge Problem:
Closed fracture of fourth toe of left foot
Instructions: Toe fracture
Prescriptions:
No Action
cetirizine 10 MG tablet
10 mg PO DAILY
ibuprofen 600 MG tablet
600 mg PO Q6 PRN (Reason: pain) Qty: 20 0RF
methylprednisolone [Medrol (Pritesh)] 4 MG tablets,dose pack
4 tab PO . DIRECT Qty: 1 0RF
omeprazole magnesium [Prilosec OTC] 20 MG tablet,delayed release (DR/EC)
20 mg PO BID Qty: 20 0RF
Rx Instructions:
take while taking motrin and medrol
doxycycline hyclate 100 MG capsule
100 mg PO Q12 Qty: 14 0RF
Paxlovid 300 mg (150 mg x 2)-100 mg tablet
See Rx Instructions .ROUTE .COMPLEX Qty: 30 0RF
Rx Instructions:
orally per package directions
naproxen 500 mg tablet
500 mg PO BID Qty: 10 0RF
metoprolol succinate [Toprol XL] 25 mg tablet extended release 24 hr
25 mg PO DAILY Qty: 14 0RF
Referrals:
Chandu Kaur MD [Active] - Follow up in 1 week
Laura Rucker MD [Family Provider] -
Activity Restrictions/Additional Instructions:
Your x-ray reveals a toe fracture. We lian taped your toes together and provided you a hard soled shoe. Rest. Avoid heavy lifting. Follow-up with orthopedics for further testing and evaluation.
Interventions
Interventions:
*Risk Screen - Suicide Last Done: 05/05/24 09:42
*General Assessment Last Done: 05/05/24 09:42
*Neglect/Abuse Screening Last Done: 05/05/24 09:42
*ED COVID-19 Vaccine History Last Done: 05/05/24 09:42
*Nursing Disposition Last Done: 05/05/24 13:28
ED-Musculoskeletal Assessment Last Done: 05/05/24 10:54
Discharge Date and Time
Discharge Date/Time: 05/05/24 13:31
Print Language: IRANIAN
[2024-05-05 13:28] VITALS: BP 133/80
== END 2024-05-05 13:31 | disposition home or self-care (01) ==
LOC: EMR 09:39
PROVIDERS: EMERGENCY PHYSICIAN Emergency Medicine; FAMILY PHYSICIAN Family Medicine
DX: S92.531A Displaced fracture of distal phalanx of right lesser toe(s), initial encounter for closed fracture (principal); W22.01XA Walked into wall, initial encounter
CPT/HCPCS: 99283; 73660

== ENCOUNTER → 2024-06-17 07:00 | Outpatient (REF) | payer OTHER, SELFPAY | LOC: HWRAD 07:00 | PROVIDERS: ATTENDING PHYSICIAN Urology; FAMILY PHYSICIAN Family Medicine | DX: N50.89 Other specified disorders of the male genital organs (principal) | CPT/HCPCS: 76870; 93976 ==